=== PATIENT | female | born 1970 | race American Indian/Alaskan Native ===

== ENCOUNTER 2018-01-08 11:46 | Emergency (ER) | payer SELFPAY ==
[2018-01-08] MEDS ORDERED: ASPIRIN PO ONE (11:54)
[2018-01-08 13:38] LABS: Basophils % (Auto) 1.2 % (0.0-1.8); Eosinophils # (Auto) 0.1 K/mm3 (0.0-0.4); Eosinophils % (Auto) 1.9 % (0.0-4.3); Hematocrit 35.1 % (30.3-42.9); Hemoglobin 10.8 gm/dl (10.1-14.3); Lymphocytes # (Auto) 1.4 K/mm3 (1.2-5.4); Lymphocytes % (Auto) 35.4 % (13.4-35.0); Mean Corpuscular HGB Conc 31 % (30-34); Mean Corpuscular Hemoglobin 25 pg (28-32); Mean Corpuscular Volume 80 fl (79-97); Monocytes # (Auto) 0.4 K/mm3 (0.0-0.8); Monocytes % (Auto) 9.2 % (0.0-7.3); Platelet Count 286 K/mm3 (140-440); Red Blood Count 4.37 M/mm3 (3.65-5.03); Red Cell Distribution Width 18.6 % (13.2-15.2)
[2018-01-08 14:01] LABS: BUN/Creatinine Ratio 17; Blood Urea Nitrogen 10 mg/dL (7-17); Calcium 9.1 mg/dL (8.4-10.2); Hemolysis Index 6
[2018-01-09] MEDS ORDERED: ULTRAM PO ONE (01:05)
[2018-01-09] MEDS ORDERED: TORADOL IM ONE (01:05)
--- NOTE | 2018-01-09 02:00 | XRay Report ---
FINAL REPORT EXAM: XR CHEST ROUTINE 2V HISTORY: left chest and arm pain TECHNIQUE: PA and lateral views of the chest were submitted. FINDINGS: Heart size and mediastinum appear normal. The lungs are clear. Pleural fluid is not seen. The skeletal structures appear well maintained. IMPRESSION: No active chest disease.
--- NOTE | 2018-01-09 02:09 | Emergency Department Report ---
ED Chest Pain HPI - General Chief Complaint: Chest Pain Stated Complaint: ARM PAIN Time Seen by Provider: 01/08/18 23:56 Source: patient Mode of arrival: Ambulatory Limitations: No Limitations - History of Present Illness Initial Comments: 47-year-old female with no significant past medical history presents to Hospital complaining of left neck and arm pain radiating to his chest. Symptoms ongoing for "a couple of months". Patient presented today because pain is worsening. She describes left arm and chest pain as cramping and intermittent. She gives the pain a 10/10 intensity but does not appear to be any significant distress. She is taking faul-swb-sdolyai Motrin and Tylenol with mild relief. Patient also having pain in the left neck, shoulder with left arm paresthesias. Patient has a history of smoking but quit. She denies family history CAD. She denies recent trauma, nausea, vomiting, shortness of breath, recent travel, calf tenderness/edema, or syncope. She does not have a primary care doctor Severity scale (0 -10): 7 - Related Data Previous Rx's Medication Instructions Recorded Last Taken Type HYDROcodone/APAP 7.5-325 [[place] 1 each PO Q8HR PRN #10 tablet 06/01/16 Unknown Rx 7.5-325 mg TAB] Ibuprofen [Motrin] 800 mg PO Q8HR PRN #30 tablet 01/09/18 Unknown Rx traMADol [Ultram 50 MG tab] 50 mg PO Q6HR PRN #20 tablet 01/09/18 Unknown Rx Allergies Allergy/AdvReac Type Severity Reaction Status Date / Time No Known Allergies Allergy Unverified 05/10/13 17:11 Heart Score - HEART Score History: Slightly suspicious EKG: Normal Age: 45-65 Risk factors: 1-2 risk factors Troponin: < normal limit HEART Score: 2 ED Review of Systems ROS: Stated complaint: ARM PAIN Other details as noted in HPI Comment: All other systems reviewed and negative ED Past Medical Hx - Past Medical History Previous Medical History?: No Additional medical history: Abnormal vaginal bleeding - Surgical History Past Surgical History?: No Additional Surgical History: x 7 - Social History Smoking Status: Current Every Day Smoker Substance Use Type: None - Medications Home Medications: Home Medications Medication Instructions Recorded Confirmed Last Taken Type HYDROcodone/APAP 7.5-325 [[place] 1 each PO Q8HR PRN #10 tablet 06/01/16 Unknown Rx 7.5-325 mg TAB] Ibuprofen [Motrin] 800 mg PO Q8HR PRN #30 tablet 01/09/18 Unknown Rx traMADol [Ultram 50 MG tab] 50 mg PO Q6HR PRN #20 tablet 01/09/18 Unknown Rx ED Physical Exam - General Limitations: No Limitations - Other Other exam information: General: No limitations, patient is alert in no acute distress Head exam: Atraumatic, normocephalic Eyes exam: Normal appearance ENT: Moist mucous membrane, normal oropharynx Neck exam: Normal inspection, full range of motion, no meningismus, left side of neck/trapezius muscle tenderness extending to the shoulder Respiratory exam: Clear to auscultation bilateral, no wheezes, rales, crackles Cardiovascular: Normal rate and rhythm, normal heart sounds Abdomen: Soft, nondistended, and nontender, with normal bowel sounds, no rebound, or guarding Extremity: Full range of motion normal inspection no deformity, no calf tenderness or edema Back: Normal Inspection, full range of motion, no tenderness Neurologic: Alert, oriented x3, cranial nerves intact, no motor or sensory deficit Psychiatric: normal affect, normal mood Skin: Warm, dry, intact ED Course Vital Signs 01/08/18 01/08/18 01/08/18 11:50 16:09 23:42 Temperature 98.3 F 98.1 F Pulse Rate 87 77 Respiratory Rate Blood Pressure 112/71 Blood Pressure 127/84 [Right] O2 Sat by Pulse 100 100 99 Oximetry 01/08/18 01/09/18 01/09/18 23:50 00:00 01:00 Temperature 97.7 F Pulse Rate 69 65 67 Respiratory 17 14 15 Rate Blood Pressure 130/76 118/76 Blood Pressure 130/76 [Right] O2 Sat by Pulse 99 100 99 Oximetry ED Medical Decision Making - Lab Data Result diagrams: 01/08/18 13:30 01/08/18 13:30 Lab Results 01/08/18 01/08/18 01/08/18 Range/Units 13:30 13:30 15:07 WBC 3.8 L (4.5-11.0) K/mm3 RBC 4.37 (3.65-5.03) M/mm3 Hgb 10.8 (10.1-14.3) gm/dl Hct 35.1 (30.3-42.9) % MCV 80 (79-97) fl MCH 25 L (28-32) pg MCHC 31 (30-34) % RDW 18.6 H (13.2-15.2) % Plt Count 286 (140-440) K/mm3 Lymph % (Auto) 35.4 H (13.4-35.0) % Harper % (Auto) 9.2 H (0.0-7.3) % Eos % (Auto) 1.9 (0.0-4.3) % Baso % (Auto) 1.2 (0.0-1.8) % Lymph # 1.4 (1.2-5.4) K/mm3 Harper # 0.4 (0.0-0.8) K/mm3 Eos # 0.1 (0.0-0.4) K/mm3 Baso # 0.0 (0.0-0.1) K/mm3 Seg Neutrophils % 52.3 (40.0-70.0) % Seg Neutrophils # 2.0 (1.8-7.7) K/mm3 Sodium 143 (137-145) mmol/L Potassium 4.4 (3.6-5.0) mmol/L Chloride 103.9 (98-107) mmol/L Carbon Dioxide 24 (22-30) mmol/L Anion Gap 20 mmol/L BUN 10 (7-17) mg/dL Creatinine 0.6 L (0.7-1.2) mg/dL Estimated GFR > 60 ml/min BUN/Creatinine Ratio 17 % Glucose 77 (65-100) mg/dL Calcium 9.1 (8.4-10.2) mg/dL Troponin T < 0.010 < 0.010 (0.00-0.029) ng/mL 01/08/18 Range/Units 17:02 WBC (4.5-11.0) K/mm3 RBC (3.65-5.03) M/mm3 Hgb (10.1-14.3) gm/dl Hct (30.3-42.9) % MCV (79-97) fl MCH (28-32) pg MCHC (30-34) % RDW (13.2-15.2) % Plt Count (140-440) K/mm3 Lymph % (Auto) (13.4-35.0) % Harper % (Auto) (0.0-7.3) % Eos % (Auto) (0.0-4.3) % Baso % (Auto) (0.0-1.8) % Lymph # (1.2-5.4) K/mm3 Harper # (0.0-0.8) K/mm3 Eos # (0.0-0.4) K/mm3 Baso # (0.0-0.1) K/mm3 Seg Neutrophils % (40.0-70.0) % Seg Neutrophils # (1.8-7.7) K/mm3 Sodium (137-145) mmol/L Potassium (3.6-5.0) mmol/L Chloride (98-107) mmol/L Carbon Dioxide (22-30) mmol/L Anion Gap mmol/L BUN (7-17) mg/dL Creatinine (0.7-1.2) mg/dL Estimated GFR ml/min BUN/Creatinine Ratio % Glucose (65-100) mg/dL Calcium (8.4-10.2) mg/dL Troponin T < 0.010 (0.00-0.029) ng/mL - EKG Data -: EKG Interpreted by In EKG shows normal: sinus rhythm, axis (qrs -21), QRS complexes (qrsd 87), ST-T waves (no stemi or t inv) Rate: normal (79) - EKG Data When compared to previous EKG there are: no significant change - Radiology Data Radiology results: report reviewed cxr IMPRESSION: No active chest disease. - Medical Decision Making Patient had the pain suggestive of radiculopathy as well as atypical chest pain. During prolonged ED stay patient had 3 negative cardiac enzymes and 3 EKGs that do not show any acute changes are normal. Patient is only cardiac risk factor is smoking perhaps age. Outpatient follow-up with cardiology and primary care doctor will be encouraged. Medication will be prescribed for pain - Differential Diagnosis MSK pain, radiculopathy, atypical chest pain, LA, unstable angina Critical Care Time: No Critical care attestation.: If time is entered above; I have spent that time in minutes in the direct care of this critically ill patient, excluding procedure time. ED Disposition Clinical Impression: Atypical chest pain, Arm paresthesia, left Disposition: DC-01 TO HOME OR SELFCARE Is pt being admited?: No Condition: Stable Instructions: Chest Pain (ED), Paresthesia (ED) Additional Instructions: Take the medication as prescribed. 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 Please return if symptoms worsen as indicated by your discharge instructions Prescriptions: Ibuprofen [Motrin] 800 mg PO Q8HR PRN #30 tablet PRN Reason: Pain traMADol [Ultram 50 MG tab] 50 mg PO Q6HR PRN #20 tablet PRN Reason: Pain Referrals: [facility] [Provider Group] - 3-5 Days (Primary care clinic) NAA ROMO MD [Staff Physician] - 3-5 Days (primary care doctor) ALYX WYMAN MD [Staff Physician] - 3-5 [address] (general road production manager (heart doctor)) Time of Disposition: 02:13
[2018-01-09 02:40] VITALS: BP 119/78
== END 2018-01-09 02:25 | disposition home or self-care (01) ==
LOC: ED 11:46
DX: R07.89 Other chest pain (principal); R20.0 Anesthesia of skin; F17.200 Nicotine dependence, unspecified, uncomplicated
CPT/HCPCS: 36415; 71046; 80048; 84484; 85025; 93005; 93010; 96372; 99284; J1885

== ENCOUNTER 2019-06-15 00:18 | Emergency (ER) | payer SELFPAY ==
[2019-06-15] MEDS ORDERED: BOOSTRIX IM ONE (02:15)
[2019-06-15] MEDS ORDERED: FLEXERIL PO ONE (02:15)
[2019-06-15] MEDS ORDERED: NAPROSYN PO ONE (02:15)
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
[2019-06-15] MEDS ORDERED: TYLENOL PO ONE (02:46)
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
[2019-06-15 05:22] VITALS: BP 101/65
== END 2019-06-15 05:15 | disposition home or self-care (01) ==
LOC: ED 00:18
DX: S20.211A Contusion of right front wall of thorax, initial encounter (principal); Y04.8XXA Assault by other bodily force, initial encounter; Y93.89 Activity, other specified; Y92.89 Other specified places as the place of occurrence of the external cause; Y99.8 Other external cause status
CPT/HCPCS: 70450; 90471; 90715

== ENCOUNTER 2020-02-26 03:17 | Emergency (ER) | payer SELFPAY ==
[2020-02-26] MEDS ORDERED: HALOPERIDOL LACTATE 5 MG/1 ML INJ IM PRN (04:40)
[2020-02-26] MEDS ORDERED: LORazepam 2 MG/ML VIAL IM PRN (04:40)
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
[2020-02-26 06:50] LABS: Hematocrit 42.8 % (30.3-42.9); Hemoglobin 14.1 gm/dl (10.1-14.3); Mean Corpuscular HGB Conc 33 % (30-34); Mean Corpuscular Volume 91 fl (79-97); Platelet Count 214 K/mm3 (140-440); Red Blood Count 4.71 M/mm3 (3.65-5.03); Red Cell Distribution Width 14.1 % (13.2-15.2)
[2020-02-26 07:04] LABS: BUN/Creatinine Ratio 11; Blood Urea Nitrogen 8 mg/dL (7-17); Calcium 9.8 mg/dL (8.4-10.2); Hemolysis Index 6
[2020-02-26] MEDS ORDERED: DIPHtheria,PERTUSSIS(ACELL),TETANUS VACCINE/PF 0.5 ML VIAL IM ONE (07:57)
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
[2020-02-27 01:57] LABS: Amphetamine Screen,Urine PRESUMPTIVE POSITIVE
[2020-02-27 01:58] LABS: Bacteria,Urine 1+ /HPF (Negative); Benzodiazepines Screen,Urine PRESUMPTIVE NEGATIVE; Bilirubin,Urine NEG (Negative); Blood,Urine NEG (Negative); Cannabinoid Screen,Urine PRESUMPTIVE NEGATIVE; Cocaine Screen,Urine PRESUMPTIVE NEGATIVE; Color,Urine Yellow (Yellow); Methadone Screen,Urine PRESUMPTIVE NEGATIVE; Mucus,Urine FEW /HPF; Opiate Screen,Urine PRESUMPTIVE NEGATIVE; Protein,Urine <15 mg/dL mg/dL (Negative)
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
[2020-02-28] MEDS ORDERED: IBUPROFEN 400 MG TAB PO ONE ×2 (00:59→09:00)
[2020-02-28 07:45] VITALS: BP 124/87
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
[2020-02-28] MEDS ORDERED: traZODone 50 MG TAB PO SCH (22:00)
[2020-02-29] MEDS ORDERED: ARIPiprazole 15 MG TAB PO SCH (10:00)
== END 2020-02-28 17:20 ==
LOC: ED 03:17 → EEVIPCON 03:17 → ED 02-28 17:20
DX: F29 Unspecified psychosis not due to a substance or known physiological condition (principal); Z79.899 Other long term (current) drug therapy; Z98.890 Other specified postprocedural states; V09.9XXA Pedestrian injured in unspecified transport accident, initial encounter; Y93.89 Activity, other specified; Y92.410 Unspecified street and highway as the place of occurrence of the external cause; Y99.8 Other external cause status
CPT/HCPCS: 36415; 70450; 71260; 72125; 72170; 73060; 73090; 74177; 80048; 80307; 81001; 82550; 83735; 84703; 85027; 93005; 96372; 99285; J1630; J2060; Q9967; 80320; G0480